=== PATIENT | female | born 1990 | race Caucasian/White ===

== ENCOUNTER 2016-10-09 14:16 | Emergency (ER) ==
[2016-10-09 14:28] VITALS: BP 122/90; TEMP 97.3; BMI 29.8
--- NOTE | 2016-10-09 14:57 | ED.PDOC ---
General ED Provider: Dr. YOANDY RUGGIERO Chief Complaint: Hand Pain/Injury Stated Complaint: righ hand puncture wound Time Seen by Physician: 14:16 (puncture wound right hand base of right thumb) Mode of Arrival: Walk-In Information Source: Patient Exam Limitations: No limitations Primary Care Provider: [facility] Nursing and Triage Documentation Reviewed and Agree: Yes (see photos. seen with dee .pt refuse tetnus shot ) Musculoskeletal Complaint Exam - Hand/Wrist Complaint/Exam Location of Pain: Reports: Right Mechanism of Injury: Reports: Trauma (nail puncture wound ) Onset/Duration: 1 day ago Symptoms Are: Still present Character: Reports: Dull Alleviating: Reports: None Aggravating: Reports: Movement Associated Signs and Symptoms: Denies: Swelling, Redness, Bruising, Fever, Weakness, Numbness, Tingling Review of Systems - Review Of Systems Constitutional: Reports: No symptoms Eyes: Reports: No symptoms Ears, Nose, Mouth, Throat: Reports: No symptoms Respiratory: Reports: No symptoms Cardiac: Reports: No symptoms GI: Reports: No symptoms : Reports: No symptoms Musculoskeletal: Reports: No symptoms Skin: Reports: Other (puncture wound right hand 1mm) Neurological: Reports: No symptoms Endocrine: Reports: No symptoms Hematologic/Lymphatic: Reports: No symptoms All Other Systems: Reviewed and Negative Past Medical History - Past Medical History Endocrine: Reports: None Cardiovascular: Reports: None Respiratory: Reports: None Hematological: Reports: None Gastrointestinal: Reports: None Genitourinary: Reports: None Neuro/Psych: Reports: None Musculoskeletal: Reports: Other Cancer: Reports: None Last Menstrual Period: NOW Other Pertinent Past Medical History: throat swelling and itching with tramadol - no problem with cough medication - Surgical History General Surgical History: Reports: Tubal ligation, Orthopedic (right acl) - Family History Family History: Reports: None, Hypertension (father and grandmother), Other ( two children ill last week she became ill when they became well- no fevers cough runny nose) - Social History Smoking Status: Former smoker Hx Substance Use: No Alcohol Screening: None - Immunizations Tetanus Shot up to Date: Yes Influenza Vaccine within 12 Months: No Pneumococcal Vaccine up to Date: No Physical Exam - Physical Exam Appearance: Well-appearing, No pain distress, Well-nourished Eyes: WINNIE, EOMI, Conjunctiva clear ENT: Ears normal, Nose normal, Oropharynx normal Respiratory: Airway patent, Breath sounds clear, Breath sounds equal, Respirations nonlabored Cardiovascular: RRR, Pulses normal, No rub, No murmur GI/: Soft, Nontender, No masses, Bowel sounds normal, No Organomegaly Musculoskeletal: Normal strength (1mm puncture wound see photos ) Skin: Warm, Dry, Normal color Neurological: Sensation intact, Motor intact, Reflexes intact, Cranial nerves intact, Alert, Oriented Psychiatric: Affect appropriate, Mood appropriate Critical Care Note - Critical Care Note Total Time (mins): 0 Course - Course Vital Signs: Temp Pulse Resp BP Pulse Ox 10/09/16 14:16 97.3 F L 100 H 16 122/90 99 Departure - Departure Time of Disposition: 14:57 Disposition: HOME SELF-CARE Discharge Problem: Injury of hand, Hand pain, Puncture wound of right hand Instructions: Puncture Wound (ED) Condition: Good Pt referred to PMD for follow-up: No Allergies/Adverse Reactions: Allergies banana Adverse Reaction (Verified 10/09/16 14:29) codeine Adverse Reaction (Verified 10/09/16 14:29) Penicillins Adverse Reaction (Verified 10/09/16 14:29) tramadol HCl [From Ultra] Adverse Reaction (Verified 10/09/16 14:29) Home Medications: Ambulatory Orders Amoxicillin [Amoxil] 500 mg PO TID #30 capsule 07/22/16 Hydrocodone/Acetaminophen [[place] 5-325 Tablet] 1 tab PO Q6HR PRN #20 tablet Ibuprofen [Motrin] 600 mg PO Q6H PRN #30 tablet 07/22/16
[2016-10-09] MEDS ORDERED: LIDOCAINE 1 % AMP 5 ML (SUTURES) IM STA (15:11)
[2016-10-09] MEDS ORDERED: ROCEPHIN IM STA (15:11)
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
== END 2016-10-09 16:00 | disposition home or self-care (01) ==
LOC: ED 14:16
DX: S61.431A Puncture wound without foreign body of right hand, initial encounter (principal); W45.0XXA Nail entering through skin, initial encounter
CPT/HCPCS: 96372; 99282

== ENCOUNTER 2016-12-10 18:55 | Emergency (ER) ==
[2016-12-10 19:05] VITALS: BP 103/56; TEMP 98.9; BMI 29.2
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
[2016-12-10] MEDS: TORADOL IM STA (20:22)
--- NOTE | 2016-12-10 21:02 | DI ---
EXAM: Views of the left ribs with a frontal view of the chest HISTORY: Pain TECHNIQUE: AP, oblique views of the left wrist were obtained. An additional frontal PA view the obi st was obtained. FINDINGS: No acute fractures are seen. At the left lung appears clear. The soft tissues are normal . The heart is normal size. Lungs are clear. The pulmonary vasculature appears normal. IMPRESSION: No acute fractures are seen within the left ribs. No active cardiopulmonary disease.
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
== END 2016-12-10 21:34 | disposition home or self-care (01) ==
LOC: ED 18:55
DX: R07.89 Other chest pain (principal); S00.83XA Contusion of other part of head, initial encounter; Y04.0XXA Assault by unarmed brawl or fight, initial encounter
CPT/HCPCS: 96372; 99283

== ENCOUNTER 2017-04-28 20:04 | Emergency (ER) ==
[2017-04-28 20:15] VITALS: BP 115/80; TEMP 98.9; BMI 27.0
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
--- NOTE | 2017-04-29 07:39 | DI ---
EXAM: Radiographs, right foot HISTORY: Initial presentation for right foot injury. COMPARISON: None available. TECHNIQUE: Three views. FINDINGS: Bone mineralization is normal. There is no fracture or dislocation. The joint spaces ar e maintained. No focal soft tissue abnormality is seen. IMPRESSION: No fracture or dislocation.
== END 2017-04-28 21:20 | disposition home or self-care (01) ==
LOC: ED 20:04
DX: S93.601A Unspecified sprain of right foot, initial encounter (principal); Y93.55 Activity, bike riding; F17.210 Nicotine dependence, cigarettes, uncomplicated
CPT/HCPCS: 99283

== ENCOUNTER 2018-07-04 14:10 | Emergency (ER) ==
[2018-07-04 14:14] VITALS: BP 140/73; TEMP 98.4; BMI 28.1
--- NOTE | 2018-07-04 14:49 | ED.PDOC ---
General ED Provider: Dr. ELLEN YOUNG-ER Chief Complaint: Wrist Pain/Injury Stated Complaint: i moved some furniture and felt a pop in my wrist--now numbness and tingling in my wrist and hand Time Seen by Physician: 14:15 Mode of Arrival: Walk-In Information Source: Patient Exam Limitations: No limitations Primary Care Provider: GENESIS TORRES Nursing and Triage Documentation Reviewed and Agree: Yes Does patient meet sepsis criteria?: No System Inflammatory Response Syndrome: Not Applicable Sepsis Protocol: For patient's 13 years and over: Temp is 96.8 and below OR 101 and greater Pulse >90 BPM Resp >20/minute Acutely Altered Mental Status Are patient's symptoms suggestive of a new infection, such as: -Pneumonia -Skin, Soft Tissue -Endocarditis -UTI -Bone, Joint Infection -Implantable Device -Acute Abdominal Infection -Wound Infection -Meningitis -Blood Stream Catheter Infection -Unknown Musculoskeletal Complaint Exam - Hand/Wrist Complaint/Exam Location of Pain: Reports: Left, Hand, Wrist Mechanism of Injury: Reports: No known trauma Onset/Duration: one day Symptoms Are: Still present Onset of Pain: Reports: Immediate Initial Severity: Mild Current Severity: Mild Location: Reports: Discrete Character: Reports: Aching Aggravating: Reports: Movement Associated Signs and Symptoms: Reports: Tingling Compartment Syndrome Risk Factors: Present: Pain Differential Diagnoses: Contusion, Dislocation, Closed Fracture, Sprain, Strain Review of Systems - Review Of Systems Constitutional: Reports: No symptoms Eyes: Reports: No symptoms Ears, Nose, Mouth, Throat: Reports: No symptoms Respiratory: Reports: No symptoms Cardiac: Reports: No symptoms GI: Reports: No symptoms : Reports: No symptoms Musculoskeletal: Reports: No symptoms Skin: Reports: No symptoms Neurological: Reports: Tingling Endocrine: Reports: No symptoms Hematologic/Lymphatic: Reports: No symptoms All Other Systems: Reviewed and Negative Past Medical History - Past Medical History Previously Healthy: Yes Endocrine: Reports: None Cardiovascular: Reports: None Respiratory: Reports: None Hematological: Reports: None Gastrointestinal: Reports: None Genitourinary: Reports: None Neuro/Psych: Reports: None Musculoskeletal: Reports: Other Cancer: Reports: None Last Menstrual Period: oct Other Pertinent Past Medical History: throat swelling and itching with tramadol - no problem with cough medication - Surgical History General Surgical History: Reports: Tubal ligation, Orthopedic (right acl) - Family History Family History: Reports: None, Hypertension (father and grandmother), Other ( two children ill last week she became ill when they became well- no fevers cough runny nose) - Social History Smoking Status: Current every day smoker, Light tobacco smoker Hx Substance Use: No Alcohol Screening: None - Immunizations Influenza Vaccine within 12 Months: No Pneumococcal Vaccine up to Date: No Physical Exam - Physical Exam Appearance: Well-appearing, No pain distress, Well-nourished Pain Distress: Moderate Eyes: WINNIE, EOMI, Conjunctiva clear ENT: Ears normal, Nose normal, Oropharynx normal Neck: Supple Respiratory: Airway patent, Breath sounds clear, Breath sounds equal, Respirations nonlabored Cardiovascular: RRR, Pulses normal, No rub, No murmur GI/: Soft, Nontender, No masses, Bowel sounds normal, No Organomegaly Musculoskeletal: Normal strength, ROM intact, No edema, No calf tenderness Skin: Warm, Dry, Normal color Neurological: Sensation intact, Motor intact, Reflexes intact, Cranial nerves intact, Alert, Oriented Psychiatric: Affect appropriate, Mood appropriate Interpretation - Radiology Interpretation Radiology Interpretation By: ED Physician Radiology Results: Negative Critical Care Note - Critical Care Note Total Time (mins): 0 Course - Course Orders, Labs, Meds: Orders Category Date Time Status WRIST, LEFT 3 VIEWS Stat RADS 07/04/18 14:25 Taken Vital Signs: Temp Pulse Resp BP Pulse Ox 07/04/18 14:11 98.4 F 120 H 18 140/73 96 Departure - Departure Time of Disposition: 14:51 Disposition: HOME SELF-CARE Discharge Problem: Injury of wrist Instructions: Wrist Injury (ED) Condition: Good Pt referred to PMD for follow-up: Yes IPMP verified?: No Additional Instructions: norco 5mg q 4hrs prn pain #12---f/u with your ortho doctor Allergies/Adverse Reactions: Allergies banana Adverse Reaction (Verified 07/04/18 14:14) codeine Adverse Reaction (Verified 07/04/18 14:14) Penicillins Adverse Reaction (Verified 07/04/18 14:14) tramadol HCl [From Ultram] Adverse Reaction (Verified 07/04/18 14:14) Home Medications: Ambulatory Orders 1 [No Reported Medications] 07/04/18 Disposition Discussed With: Patient
--- NOTE | 2018-07-04 15:06 | DI ---
Exam: Three views of the left wrist. Comparison: None available. Reason for exam: Wrist injury. Surgery 2 months ago. FINDINGS: Image interpretation is limited by the lack of previous imaging for comparison. There is a plate and screw fixation of the left distal radius. Comminuted fracture of the left distal radius with minimal displacement of the radial styloid. Metal lic densities are seen in the soft tissues adjacent to the wrist. No evidence of hardware complicati on. The joint spaces within the wrist appear well maintained. Impression: 1. Left distal radius fracture with multiple fracture fragments. Image interpretation is limited se condary to a lack of previous imaging. 2. Plate and screw fixation of the left distal radius without evidence of hardware complication. 3. Metallic densities seen in the soft tissues adjacent to the left wrist may be postoperative or ra diopaque retained foreign bodies. Recommend correlation with previous imaging.
== END 2018-07-04 14:57 | disposition home or self-care (01) ==
LOC: ED 14:10
DX: S69.92XA Unspecified injury of left wrist, hand and finger(s), initial encounter (principal); X50.0XXA Overexertion from strenuous movement or load, initial encounter; F17.210 Nicotine dependence, cigarettes, uncomplicated
CPT/HCPCS: 99282

== ENCOUNTER 2019-02-12 20:45 | Emergency (ER) ==
[2019-02-12 20:51] VITALS: BP 135/75; TEMP 100.7; BMI 34.2
--- NOTE | 2019-02-12 20:58 | ED.PDOC ---
General ED Provider: Dr. ELLEN YOUNG-ER Chief Complaint: Sore Throat Stated Complaint: my throat is sore Time Seen by Physician: 20:55 Mode of Arrival: Walk-In Information Source: Patient Exam Limitations: No limitations Primary Care Provider: GENESIS TORRES Nursing and Triage Documentation Reviewed and Agree: Yes Does patient meet sepsis criteria?: No System Inflammatory Response Syndrome: Not Applicable Sepsis Protocol: For patient's 13 years and over: Temp is 96.8 and below OR 101 and greater Pulse >90 BPM Resp >20/minute Acutely Altered Mental Status Are patient's symptoms suggestive of a new infection, such as: -Pneumonia -Skin, Soft Tissue -Endocarditis -UTI -Bone, Joint Infection -Implantable Device -Acute Abdominal Infection -Wound Infection -Meningitis -Blood Stream Catheter Infection -Unknown EENT Complaint Exam - Throat Complaint/Exam Onset/Duration: 24 hrs Symptoms Are: Still present Timimg: Constant Initial Severity: Mild Current Severity: Mild Aggravating: Reports: Eating Alleviating: Reports: Antipyretics Associated Signs and Symptoms: Reports: Fever, Nasal congestion Uvula Midline: Yes Rosalind-tonsillar Fluctuence: No Scarlatinaform Rash Present: No Exanthem: Present: Pharynx Stridor Present: No Sinus Tenderness Present: No Tonsillar Hypertrophy Present: No Tonsillar Exudate Present: No Rosalind-tonsillar Swelling Present: No Adenopathy Present: Yes Splenomegaly Present: No Differential Diagnoses: Pharyngitis Review of Systems - Review Of Systems Constitutional: Reports: Fever Eyes: Reports: No symptoms Ears, Nose, Mouth, Throat: Reports: Throat pain Respiratory: Reports: No symptoms Cardiac: Reports: No symptoms GI: Reports: No symptoms : Reports: No symptoms Musculoskeletal: Reports: No symptoms Skin: Reports: No symptoms Neurological: Reports: No symptoms Endocrine: Reports: No symptoms Hematologic/Lymphatic: Reports: No symptoms All Other Systems: Reviewed and Negative Past Medical History - Past Medical History Previously Healthy: Yes Endocrine: Reports: None Cardiovascular: Reports: None Respiratory: Reports: None Hematological: Reports: None Gastrointestinal: Reports: None Genitourinary: Reports: None Neuro/Psych: Reports: None Musculoskeletal: Reports: Other Cancer: Reports: None Last Menstrual Period: on Other Pertinent Past Medical History: throat swelling and itching with tramadol - no problem with cough medication - Surgical History General Surgical History: Reports: Tubal ligation, Orthopedic (right acl) - Family History Family History: Reports: None, Hypertension (father and grandmother), Other ( two children ill last week she became ill when they became well- no fevers cough runny nose) - Social History Smoking Status: Former smoker Hx Substance Use: No Alcohol Screening: None - Immunizations Tetanus Shot up to Date: Yes Influenza Vaccine within 12 Months: No Pneumococcal Vaccine up to Date: No Physical Exam - Physical Exam Appearance: Well-appearing, No pain distress, Well-nourished Pain Distress: Mild Eyes: WINNIE, EOMI, Conjunctiva clear ENT: Rhinorrhea, Erythema Neck: Supple Respiratory: Airway patent, Breath sounds clear, Breath sounds equal, Respirations nonlabored Cardiovascular: RRR, Pulses normal, No rub, No murmur GI/: Soft, Nontender, No masses, Bowel sounds normal, No Organomegaly Musculoskeletal: Normal strength, ROM intact, No edema, No calf tenderness Skin: Warm, Dry, Normal color Neurological: Sensation intact, Motor intact, Reflexes intact, Cranial nerves intact, Alert, Oriented Psychiatric: Affect appropriate, Mood appropriate Critical Care Note - Critical Care Note Total Time (mins): 0 Course - Course Orders, Labs, Meds: even though she notes allergy to pcn--she notes she can tolerate keflex Vital Signs: Temp Pulse Resp BP Pulse Ox 02/12/19 20:46 100.7 F H 137 H 96 H 135/75 96 Departure - Departure Time of Disposition: 20:57 Disposition: HOME SELF-CARE Discharge Problem: Sore throat symptom Instructions: Pharyngitis (ED) Condition: Good Pt referred to PMD for follow-up: Yes IPMP verified?: No Additional Instructions: keflex 500mg bid x 7 days--salt water gargles--tylenol for temp---recheck in 72 hrs if not better Allergies/Adverse Reactions: Allergies banana Adverse Reaction (Verified 02/12/19 20:52) codeine Adverse Reaction (Verified 07/04/18 14:14) Penicillins Adverse Reaction (Verified 07/04/18 14:14) tramadol HCl [From Ultram] Adverse Reaction (Verified 07/04/18 14:14) Home Medications: Ambulatory Orders Lisinopril 20 mg PO BID 02/12/19 Disposition Discussed With: Patient
== END 2019-02-12 21:01 | disposition home or self-care (01) ==
LOC: ED 20:45
DX: J02.9 Acute pharyngitis, unspecified (principal); R50.9 Fever, unspecified; R09.81 Nasal congestion
CPT/HCPCS: 99282